=== PATIENT | female | born 1945 | race Caucasian/White ===

== ENCOUNTER 2020-06-26 07:28 | Outpatient (CLI) | payer MEDICARE, OTHER, SELFPAY ==
--- NOTE | ~2020-06-26 | US_ITS ---
EXAMINATION: US abdomen complete DATE: 06/26/2020 08:08 INDICATION: Abdominal pain TECHNIQUE: Multiple grayscale and Doppler ultrasound images of the abdomen were obtained. COMPARISON: CT, 01/08/2016 FINDINGS: The head and and body of the pancreas are normal. The pancreatic tail is obscured by bowel gas. The liver demonstrates increased echogenicity, heterogenous echotexture, and decreased through t ransmission. No surface nodularity. Normal hepatopetal flow in the main portal vein. Stones are prese nt in the nondistended gallbladder. There is no gallbladder wall thickening or pericholecystic fluid. The normal common bile duct measures 5 mm. There was no sonographic Saunders sign. The visualized port ions of the aorta and inferior vena cava are normal. The right kidney measures 10.7 x 4.3 x 4.3 cm. The left kidney measures 10.6 x 4.0 x 5.9 cm. The kidn eys demonstrate normal parenchymal echogenicity. There is no hydronephrosis. The spleen is normal in appearance and measures 10 cm. IMPRESSION: 1. Cholelithiasis without evidence of cholecystitis. 2. Diffuse hepatic steatosis. Reviewed, dictated and finalized at location A.
== END 2020-06-26 07:29 | disposition home or self-care (01) ==
LOC: ANHIMG 07:34
PROVIDERS: PCP Internal Medicine; Visit Provider Internal Medicine
DX: R10.9 Unspecified abdominal pain (principal); K80.20 Calculus of gallbladder without cholecystitis without obstruction; K76.0 Fatty (change of) liver, not elsewhere classified
CPT/HCPCS: 76700

== ENCOUNTER 2020-07-21 10:18 | Outpatient (CLI) | payer MEDICARE, OTHER, SELFPAY ==
--- NOTE | 2020-07-21 10:25 | ECG_ITS ---
Measurements Intervals [place] Rate: 61 P: 37 AL: 187 QRS: -56 QRSD: 113 T: 34 QT: 409 QTc: 412 Interpretive Statements SINUS RHYTHM LEFT ANTERIOR FASCICULAR BLOCK ABNORMAL ECG Electronically Signed On 07-21-2020 11:08:00 CDT by Ramez Barnes D.O.
== END 2020-07-21 10:19 | disposition home or self-care (01) ==
PROVIDERS: PCP Internal Medicine; Visit Provider Surgery
DX: R01.1 Cardiac murmur, unspecified (principal); I44.4 Left anterior fascicular block
CPT/HCPCS: 93005

== ENCOUNTER 2020-08-03 02:46 | Outpatient (CLI) | payer MEDICARE, OTHER, SELFPAY ==
[2020-08-03 18:16] LABS: SARS-CoV-2 RNA PCR Negative
== END 2020-08-03 02:47 | disposition home or self-care (01) ==
LOC: ANHCOVIDDT 02:46
PROVIDERS: PCP Internal Medicine; Visit Provider Surgery
DX: Z01.812 Encounter for preprocedural laboratory examination (principal); Z20.828 Contact with and (suspected) exposure to other viral communicable diseases
CPT/HCPCS: 87635; C9803; U0003

== ENCOUNTER 2020-08-03 10:16 | Outpatient (CLI) | payer MEDICARE, OTHER, SELFPAY ==
[2020-08-03 11:25] LABS: Alanine Aminotransferase 19 U/L (4-35); Albumin Level 4.1 g/dL (3.5-5.1); Alkaline Phosphatase 71 U/L (38-126); Amylase 72 U/L (30-110); Aspartate Amino Transferase 24 U/L (14-36); Bilirubin,Total 0.4 mg/dL (0.2-1.3); Lipase 63 U/L (23-300)
[2020-08-03 13:29] LABS: Anion Gap 9 mmol/L (8-16); Blood Urea Nitrogen 18 mg/dL (7-17); Calcium 9.4 mg/dL (8.4-10.2); Carbon Dioxide 26 mmol/L (22-30); Chloride 103 mmol/L (98-107); Estimated Glomerular Filt Rate > 60; Glucose 134 mg/dL (65-105); Potassium 3.7 mmol/L (3.4-5.0); Sodium 138 mmol/L (137-145)
== END 2020-08-03 10:17 | disposition home or self-care (01) ==
LOC: ANHSURGERY 10:20
PROVIDERS: Anesthesiology; PCP Internal Medicine; Visit Provider Surgery
DX: Z01.812 Encounter for preprocedural laboratory examination (principal); K80.00 Calculus of gallbladder with acute cholecystitis without obstruction; I10 Essential (primary) hypertension
CPT/HCPCS: 36415; 80048; 80076; 82150; 83690; 87635; C9803; U0003

== ENCOUNTER 2020-08-05 02:21 | Day surgery (SDC) | payer MEDICARE, OTHER, SELFPAY ==
[2020-07-29 10:32] VITALS: BMI 36.1
[2020-08-05] VITALS (9 sets, daily range): BP systolic 99–140; BP diastolic 36–48; PULSE 52–65; RESP 15–20; TEMP 36.2–36.3; O2SAT 93–100
[2020-08-05] MEDS: ACETAMINOPHEN 500 MG TABLET 1000 MG PO (10:34)
[2020-08-05] MEDS: LACTATED RINGERS 1,000 ML 30 ML IV CONT ×2 (10:35→14:19)
[2020-08-05] MEDS: KETOROLAC 15 MG/ML VIAL (*BKC) IV PUSH (10:39)
--- NOTE | 2020-08-05 10:45 | P.PNAN_ITS ---
Anes - Initial Pre Proc Eval Procedure: Operation Date: 08/05/20 12:00 Proposed Procedures p Laparoscopic Cholecystectomy, Possible Intraoperative Cholangiogram, Possible Open - Bradly Pham MD Date/Time: 08/05/20 10:45 Surgeon: Bradly Pham MD Pre Op Diagnosis: Chronic Cholecystitis With Cholelithiasis Patient Data Age: 75 Gender: F Height: 5 ft 4 in Weight: 95.35 kg Allergies Allergy/AdvReac Type Severity Reaction Status Date / Time Penicillins Allergy Intermediate throat Verified 07/29/20 10:01 swelling, rash Home Medications Medication Instructions Recorded Confirmed Type fexofenadine 180 mg tablet 180 mg PO HS 09/06/19 07/29/20 History multivitamin 1 tablet PO DAILY 09/06/19 07/29/20 History losartan 100 mg tablet 100 mg PO DAILY #90 tablet 05/25/20 07/29/20 Rx amlodipine 10 mg tablet 10 mg PO DAILY #90 tablet 06/17/20 07/29/20 Rx bisoprolol 10 1 tablet PO DAILY #90 tablet 07/13/20 07/29/20 Rx mg-hydrochlorothiazide 6.25 mg tablet Patient hx anesthesia problems: none Family hx anesthesia problems: none PMFSH Past Medical History Medical History History of asthma Hypertension Surgical History Surgical History H/O lymph node biopsy 2014 History of arthroplasty of right ankle History of hysterectomy Family History Family History Father Family history of tuberculosis, Onset Age: 85 Patient's father is Mother Family history of diabetes mellitus in first degree relative Patient's mother is Sibling Patient's brother is Social History Social History Smoking status: Never smoker Second hand tobacco smoke exposure: No Alcohol intake: never Substance use: unknown Living arrangements: alone Gender identity (if verbalized by the patient): Female Spiritual care concerns: No Anes - Eval Final PreProcedure Day of Procedure 08/05/20 10:45 Patient weight: obese Heart: regular rate and rhythm Lungs: clear to auscultation Airway: Mallampati scale class II Neurological: alert and oriented Last oral intake: >/= 8 hours ASA classification: III Emergent: no Anesthetic plan: proceed Anesthesia type and monitoring: general ETT and standard monitoring Informed Consent: The patient's anesthetic plan and its attendant risks and bene fits were discussed with the patient/family/POA. Questions were solicited and answers provided to the satisfaction of the patient/family/POA.
--- NOTE | 2020-08-05 12:02 | WPDHPUPDATE1 ---
History and Physical Update Update Date/Time: 08/05/20 12:02 History and Physical has been reviewed, including an updated exam of the patient. There are NO changes in the patient's condition. Risks, benefits, and alternatives have been discussed and questions answered. Patient agrees to proceed with procedure.
[2020-08-05] MEDS: CLINDAMYCIN 900 MG/NS 50 ML 900 MG/50 ML PIGGYBACK 50 MG IVPB (12:10)
[2020-08-05] MEDS: BUPIVACAINE/EPINEPHRINE 0.5% 10 ML VIAL 30 ML INFILTRATE (12:41)
--- NOTE | 2020-08-05 14:13 | P.OP_ITS ---
Procedure Note - Detailed Date of procedure: 08/07/20 Pre-op diagnosis: Chronic Cholecystitis With Cholelithiasis Chronic Cholecystitis with Cholelithiasis Post-op diagnosis: same Procedure performed: Laparoscopic Cholecystectomy Description of procedure: Patient was seen preoperatively in the holding area and risks, benefits and alternatives confirmed. Patient was taken to the operating room and general anesthesia was induced. A time out was then preformed with the surgery team confirming patient and site of surgery. The abdomen was prepped and draped in the usual sterile fashion. Incision was made just below the umbilicus with an 11 blade knife. I placed 2 stay sutures of O- Vicryl on either side of the mid- line fascia beneath the umbilicus and was then able to slide in the Clarke cannula through the fascial defect into the peritoneum. First under low flow and then under high flow the abdomen was insufflated with carbon dioxide never exceeding a pressure of 14. Three 5 mm trocars were then introduced under direct vision. The following trocars were introduced under direct vision: a 12 mm in the epigastrium and two 5 mm trocars along the right costal margin laterally in the subcostal area. There was significant omental adhesions to the underside of the gallbladder from 1/[address] down it's undersurface to the [place] of [place]. These were taken down with blunt and sharp dissection using some Bovie cautery for hemostasis. We were able to dissect this completely away from the neck of the gallbladder. Because the patient's obesity was difficult to see in this area, however with careful dissection we were able to outline the triangle of Calot. However I was not able to dissect the very small cystic artery away from the cystic duct itself. This time, therefore these were clipped together with 2 clips on the patient's side 1 on the gallbladder side. I then was able to dissect out both the cystic duct and cystic artery together (as noted above) and identify a window of safe ty. The gall bladder was grasped and the cystic duct and artery were dissected free and clipped with a 5 mm endo-clip tank bottom assembler. The cystic duct and the cystic artery were transected at this point. The gall bladder was removed using electrocautery and then removed from the abdomen using a large 10 mm grasper via the umbilical incision. After this I carefully revisualized the cystic duct and there was no leakage noted. The trocars were removed visualizing hemostasis and the remaining gas evacuated. A 12 mm trocar site at the epigastric area was closed with the use of a Adria cone and a 0 Vicryl suture passed with a granny needle.The large trocar site at the umbilicus was closed with use of the 2 stay sutures of 0 Vicryl mentioned above and also a figure of 8 O-Vicryl suture. The 2 stay sutures mentioned above on either side of the fascia were also tied together to help approximate this midline fascia. Further local anesthetic was placed into each incision for postop pain control. The skin incisions were closed with subcuticular suture of 4-0 Monocryl. Surgical glue then was applied to all the incisions. Patient tolerated the procedure well was taken to the recovery room in good condition. Anesthesia: GETA Surgeon: Bradly Pham MD Truck Dock Material Mover: Tati CALLE, OR wheelchair van operator first responder Drains: No Packing: No Pathology: yes (Gallbladder) Complications: No immediate complications Condition: stable Disposition: PACU Findings: The lower 3rd of the inferior surface of the gallbladder was very densely adherent to the duodenum and the cystic duct triangle of Calot area was deeply angulated into the nancy hepatis.
[2020-08-05] MEDS: ONDANSETRON INJ 4 MG/2 ML VIAL IV PUSH (15:03)
[2020-08-05] MEDS: fentaNYL CITRATE INJ (*CRX) 100 MCG/2 ML VIAL 25 MCG IV PUSH (15:41)
[2020-08-05] MEDS: oxyCODONE HCL (*CRX) 5 MG TAB IR PO (16:37)
== END 2020-08-05 16:53 | disposition home or self-care (01) ==
PROVIDERS: PCP Internal Medicine; Visit Provider Surgery
PROC: 0FT44ZZ Resection of Gallbladder, Percutaneous Endoscopic Approach (ICD-10-PCS; CPT 47562; principal; 2020-08-05 12:00)
DX: K80.10 Calculus of gallbladder with chronic cholecystitis without obstruction (principal); I10 Essential (primary) hypertension; E66.9 Obesity, unspecified; Z68.36 Body mass index [BMI] 36.0-36.9, adult
CPT/HCPCS: 47562; 88304; A9270; J1100; J1885; J2405; J2704; J2710; J3010; J7120; Q9966

== ENCOUNTER 2022-11-08 01:05 | Day surgery (SDC) | payer MEDICARE, OTHER, SELFPAY ==
[2022-10-26 13:05] VITALS: BMI 36.1
[2022-11-08 08:42] VITALS: BP 165/60; PULSE 74; RESP 18; TEMP 36.3; O2SAT 98; BMI 35.9
[2022-11-08] MEDS: LACTATED RINGERS 1,000 ML 150 ML IV CONT (08:46)
--- NOTE | 2022-11-08 09:25 | WPDANESEPPF ---
Anes - Initial Pre Proc Eval Procedure: Operation Date: 11/08/22 09:45 Proposed Procedures p Screening Colonoscopy - Ace Cobian MD Date/Time: 11/08/22 09:25 Surgeon: Ace Cobian MD Pre Op Diagnosis: Hx of colon polyps Patient Data Age: 77 Gender: F Height: 1.63 m Weight: 94.8 kg Last Vital Signs Temp 97.3 F L 11/08/22 08:42 Pulse 74 11/08/22 08:42 Resp 18 11/08/22 08:42 BP 165/60 H 11/08/22 08:42 Pulse Ox 98 11/08/22 08:42 O2 Del Method Room Air 11/08/22 08:42 Allergies Allergy/AdvReac Type Severity Reaction Status Date / Time Penicillins Allergy Intermediate throat Verified 11/08/22 08:41 swelling, rash Home Medications Medication Instructions Recorded Confirmed Type fexofenadine 180 mg tablet 180 mg PO HS 09/06/19 11/08/22 History (Deandra Allergy) multivitamin 1 tablet PO DAILY 09/06/19 11/08/22 History amlodipine 10 mg tablet 10 mg PO DAILY #90 tabs 06/03/22 11/08/22 Rx bisoprolol 10 1 tablet PO DAILY #90 tabs 07/03/22 11/08/22 Rx mg-hydrochlorothiazide 6.25 mg tablet cholestyramine (with sugar) 4 gram 4 g PO DAILY #348.6 grams 09/29/22 11/08/22 Rx oral powder vitamin B complex 1 tablet PO DAILY 10/26/22 11/08/22 History losartan 100 mg tablet 100 mg PO DAILY #90 tabs 11/06/22 11/08/22 Rx Patient hx anesthesia problems: none Family hx anesthesia problems: none Results Review: All pre-operative results and documents have been reviewed as part of the pre-operative evaluation. [facility] Past Medical History Medical History (Updated 09/29/22 @ 13:50 by Ace Cobian MD) Adenomatous colon polyp Diarrhea Fatty liver History of asthma Hypertension Surgical History Surgical History (Updated 09/29/22 @ 13:50 by Ace Cobian MD) H/O lymph node biopsy 2014 History of arthroplasty of right ankle History of hysterectomy Hx laparoscopic cholecystectomy Family History Family History Father Family history of tuberculosis, Onset Age: 85 Patient's father is Mother Family history of diabetes mellitus in first degree relative Patient's mother is Sibling Patient's brother is Social History Social History Smoking status: Never smoker Second hand tobacco smoke exposure: No Alcohol intake: never Substance use: unknown Substance use type: does not use Living arrangements: alone Gender identity (if verbalized by the patient): Female Spiritual care concerns: No Anes - Eval Final PreProcedure Day of Procedure 11/08/22 09:25 Patient weight: obese Heart: regular rate and rhythm Lungs: clear to auscultation Airway: Mallampati scale class II Neurological: alert and oriented Last oral intake: >/= 8 hours ASA classification: III Emergent: no Anesthetic plan: proceed Anesthesia type and monitoring: general GIVS and standard monitoring Results Review: All pre-operative results and documents have been reviewed as part of the pre-operative evaluation. Informed Consent: The patient's anesthetic plan and its attendant risks and benefits were discussed with the patient/family/POA. Questions were solicited and answers provided to the satisfaction of the patient/family/POA.
--- NOTE | 2022-11-08 09:29 | PM.HPGS ---
History of Present Illness History of Present Illness Consent: Risks, benefits, and alternatives have been discussed and questions answered. Patient agrees to proceed with procedure. Chief complaint: Hx of colon polyps Narrative: Cathy Posada is a 77 year old female with colon polyp 8-9 years ago. Review of Systems Constitutional: Constitutional: Denies headache(s) and Denies weakness Eyes: Eyes: Denies blurry vision ENT: Reports Normal hearing present, Denies headache(s) and Denies neck pain Cardiovascular: Cardiovascular: Denies chest pain and Denies dyspnea Respiratory: Respiratory: Denies dyspnea Gastrointestinal: Gastrointestinal: Reports no additional gastrointestinal complaints Genitourinary: Genitourinary: Denies dysuria Musculoskeletal: Musculoskeletal: Denies neck pain Integumentary/Breasts: Skin/Breast: Denies dry skin Neurologic: Reports Normal hearing present, Denies headache(s) and Denies weakness Psychiatric: Psychiatric: Denies anxiety Endocrine: Endocrine: Denies change in body appearance Hematologic/Lymphatic: Hematologic/Lymphatic: Denies easy bleeding Allergic/Immunologic: Allergic/Immunologic: Denies urticaria PMFSH Past Medical History Medical History (Updated 09/29/22 @ 13:50 by Ace Cobian MD) Adenomatous colon polyp Diarrhea Fatty liver History of asthma Hypertension Surgical History Surgical History (Updated 09/29/22 @ 13:50 by Ace Cobian MD) H/O lymph node biopsy 2014 History of arthroplasty of right ankle History of hysterectomy Hx laparoscopic cholecystectomy Family History Family History Father Family history of tuberculosis, Onset Age: 85 Patient's father is Mother Family history of diabetes mellitus in first degree relative Patient's mother is Sibling Patient's brother is Social History Social History Smoking status: Never smoker Second hand tobacco smoke exposure: No Alcohol intake: never Substance use: unknown Substance use type: does not use Living arrangements: alone Gender identity (if verbalized by the patient): Female Spiritual care concerns: No Meds Home Medications and Allergies Home Medications Medication Instructions Recorded Confirmed Type fexofenadine 180 mg tablet 180 mg PO HS 09/06/19 11/08/22 History (Deandra Allergy) multivitamin 1 tablet PO DAILY 09/06/19 11/08/22 History amlodipine 10 mg tablet 10 mg PO DAILY #90 tabs 06/03/22 11/08/22 Rx bisoprolol 10 1 tablet PO DAILY #90 tabs 07/03/22 11/08/22 Rx mg-hydrochlorothiazide 6.25 mg tablet cholestyramine (with sugar) 4 gram 4 g PO DAILY #348.6 grams 09/29/22 11/08/22 Rx oral powder vitamin B complex 1 tablet PO DAILY 10/26/22 11/08/22 History losartan 100 mg tablet 100 mg PO DAILY #90 tabs 11/06/22 11/08/22 Rx Allergies Allergy/AdvReac Type Severity Reaction Status Date / Time Penicillins Allergy Intermediate throat Verified 11/08/22 08:41 swelling, rash Vital Signs Vital Signs - 24 hr 11/08/22 08:42 Temperature 97.3 F L Pulse Rate 74 Respiratory Rate 18 Blood Pressure 165/60 H Pulse Oximetry 98 Oxygen Delivery Room Air Exam Const: General: comfortable and no acute distress HENMT: Face/Nose/Sinus: Normal nares present Eyes: General: appearance normal, both eyes and all related structures Neck: Neck: no JVD Resp: Auscultation: clear to auscultation bilaterally Cardio: Rate: regular rate Rhythm: regular rhythm GI: Inspection: non-distended GI Palp: Yes Soft to palpation Skin: General skin exam: normal color Neuro: General: gait normal Speech: normal speech Extrem: General: normal to inspection Psych: Mental Status: mental status grossly normal Assessment and Plan
[2022-11-08 09:50] VITALS: BP 101/48; PULSE 62; RESP 16; O2SAT 98
[2022-11-08 10:00] VITALS: BP 126/54; PULSE 57; RESP 23; O2SAT 98
[2022-11-08 10:10] VITALS: BP 149/82; PULSE 61; RESP 23; O2SAT 100
== END 2022-11-08 10:23 | disposition home or self-care (01) ==
PROVIDERS: PCP Internal Medicine; Visit Provider Internal Medicine Gastroenterology
PROC: 0DJD8ZZ Inspection of Lower Intestinal Tract, Via Natural or Artificial Opening Endoscopic (ICD-10-PCS; CPT 45378; principal; 2022-11-08 09:45)
DX: Z12.11 Encounter for screening for malignant neoplasm of colon (principal); D12.2 Benign neoplasm of ascending colon; K63.5 Polyp of colon; K57.30 Diverticulosis of large intestine without perforation or abscess without bleeding; I10 Essential (primary) hypertension; K76.0 Fatty (change of) liver, not elsewhere classified; E66.9 Obesity, unspecified; Z68.35 Body mass index [BMI] 35.0-35.9, adult
CPT/HCPCS: 45380; 45385; 88305; J2704; J7120